=== PATIENT | female | born 1975 | race Asian ===

== ENCOUNTER 2018-05-27 19:54 | Emergency (ER) | payer OTHER, SELFPAY ==
[2018-05-27 20:06] VITALS: BP 136/90; PULSE 180; RESP 16; TEMP 37.2; O2SAT 100
--- NOTE | 2018-05-27 20:09 | DI.RAD.S_ITS ---
PROCEDURE: XR CHEST 1V INDICATIONS: chest pain TECHNIQUE: One view of the chest was acquired. COMPARISON: None. FINDINGS: Surgical changes and devices: None. Lungs and pleura: No pleural effusions or pneumothorax. Lungs are clear. Mediastinum: Mediastinal contours appear normal. Heart size is normal. Bones and chest wall: No suspicious bony lesions. Overlying soft tissues appear unremarkable. IMPRESSION: No acute cardiopulmonary disease. Dictated by: Benjamin Baez M.D. on 05/27/2018 at 22:05 Approved by: Benjamin Baez M.D. on 05/27/2018 at 22:06
[2018-05-27] MEDS: ADENOSINE 6 MG/2 ML VIAL IV (20:20)
--- NOTE | 2018-05-27 20:20 | ED_ITS ---
HPI - Arrhythmia/Palpitations General Chief Complaint: Arrhythmia/Palpitations Stated Complaint: HEAVINESS IN CHEST,SHAKING Time Seen by Provider: 05/27/18 20:04 Source: patient Mode of arrival: ambulatory Limitations: no limitations History of Present Illness HPI narrative: Patient is a 42-year-old female who presents with chest pain. She says she was riding her bike down [place] when she began feeling chest heaviness. She is noted to be in SVT with heart rate about 180. No prior history of cardiac arrhythmias. she denies any dizziness lightheadedness or shortness of breath MD complaint: rapid heart beat and heart racing Related Data Previous Rx's Medication Instructions Recorded typhoid polysacch vaccine 25 mcg IM QDAYP PRN #1 ea 09/22/17 [Typhim ] doxycycline monohydrate 100 mg PO QDAY #50 tab 09/26/17 Allergies Allergy/AdvReac Type Severity Reaction Status Date / Time No Known Drug Allergies Allergy Verified 05/27/18 20:08 Review of Systems Review of Systems All systems reviewed & are unremarkable except as noted in HPI and below Constitutional Denies chills, Denies fever(s), Denies lethargy and Denies weakness Eyes Denies change in vision, Denies eye discharge, Denies irritation and Denies loss of vision Cardiovascular Reports as per HPI, Denies dyspnea and Denies dyspnea on exertion Respiratory Denies cough, Denies dyspnea, Denies dyspnea on exertion and Denies wheezing Gastrointestinal Gastrointestinal: Denies abdominal pain, Denies change in bowel habits, Denies diarrhea, Denies nausea and Denies vomiting Musculoskeletal Denies back pain, Denies muscle weakness, Denies numbness and Denies tingling Integumentary/Breasts Denies pruritus, Denies erythema, Denies rash and Denies wounds Neurologic Denies loss of vision, Denies numbness, Denies tingling and Denies weakness Allergic/Immunologic Denies wheezing [facility] Medical History Healthy adult (Acute) Exam Initial Vital Signs Initial Vital Signs: Vital Signs Temperature 98.9 F 05/27/18 20:06 Pulse Rate 180 H 05/27/18 20:06 Respiratory Rate 16 05/27/18 20:06 Blood Pressure 136/90 H 05/27/18 20:06 Pulse Oximetry 100 05/27/18 20:06 Const General: cooperative and well developed Nutritional Appearance: well nourished Orientation: alert, awake, oriented x3 and not confused [facility] Head: normal to inspection and normocephalic Neck Neck: normal visual inspection, trachea midline, No lymphadenopathy and No midline deformity Chest Chest: normal inspection of the chest Resp Auscultation: clear to auscultation bilaterally, no rales, no rhonchi and no wheezes Cardio Rate: tachycardic Rhythm: regular rhythm Heart Sounds: no click, no gallops, no murmurs and no rubs Pulses: normal peripheral pulses Neuro General: alert, oriented x3, gait normal and no focal motor deficits Speech: speech normal Scores PERC Score Age greater than or equal to 50 years: No Heart rate greater than or equal to 100 bpm: No Room Air O2 Sat less than 95%: No Unilateral leg swelling: No Recent trauma or surgery: No Hemoptysis: No Prior PE or DVT: No Hormone Use: No Total PERC Score: 0 Wells' Criteria for PE Clinical signs and symptoms of PE: No PE is #1 Dx or equally likely: No Heart rate > 100: No Immobilization at least 3 days or surg in previous 4 weeks: No History of PE or DVT: No Hemoptysis: No Malignancy w/Treatment within 6 months or palliative: No Wells' PE Score total: 0 Course Orders Ordered: ED Orders 05/27/18 20:30 Complete Blood Count AUTO DIFF Stat Comprehensive Metabolic Panel Stat D Dimer Stat Magnesium Stat Troponin & CK Cardiac Panel Stat Discontinued Medications Adenosine (Adenocard) 6 mg IV NOW ONE Stop: 05/27/18 20:10 Last Admin: 05/27/18 20:20 Dose: 6 mg Sodium Chloride (Normal Saline 0.9%) 1,000 mls @ 1,000 mls/hr IV CONT JESUSITA Last Admin: 05/27/18 20:48 Dose: 1,000 mls/hr Vital Signs - 8 hr 05/27/18 21:43 05/27/18 22:19 Pulse Rate 78 109 H Respiratory Rate 23 21 Blood Pressure 140/83 H Blood Pressure [Left Arm] 123/86 H Pulse Oximetry 96 100 MDM - Arrhythmia/Palpitations Lab Data Attestation: I reviewed the patient's lab results. Result diagrams: 05/27/18 20:30 05/27/18 20:30 Lab Results 05/27/18 05/27/18 05/27/18 Range/Units 20:30 20:30 20:30 WBC 6.4 (4.5-11.0) X10^3/uL RBC 4.92 (4.0-5.2) X10^6/uL Hgb 14.2 (12.0-16.0) g/dL Hct 41.2 (36-46) % MCV 83.7 (80-100) fL MCH 28.9 (26-34) PG MCHC 34.6 (30-36) % RDW 13.9 (11.6-14.8) % Plt Count 176 (150-400) X10^3/uL Neut % (Auto) 65.4 (50-75) % Lymph % (Auto) 26.7 (25-40) % [place] % (Auto) 5.6 (3-14) % Eos % (Auto) 1.6 L (2-4) % Baso % (Auto) 0.7 (0-2) % Neut # (Auto) 4200 (3892-9399) /uL D-Dimer < 200 (<230) ng/mL Sodium 139 (137-145) mmol/L Potassium 3.7 (3.4-5.1) mmol/L Chloride 107 (98-107) mmol/L Carbon Dioxide 22 (22-32) mmol/L BUN 11 (7-17) mg/dL Creatinine 0.70 (0.52-1.04) mg/dL Estimated GFR > 60.0 (>60) mL/min BUN/Creatinine Ratio 15.7 (6-22) Glucose 117 H (70-100) mg/dL Calcium 9.0 (8.4-10.2) mg/dL Magnesium 2.1 (1.6-2.3) mg/dL Total Bilirubin 0.4 (0.2-1.3) mg/dL AST 58 H (14-36) IU/L ALT 57 H (9-52) IU/L Alkaline Phosphatase 67 (38-126) U/L Total Creatine Kinase 74 (30-135) U/L Troponin I < 0.012 (0.01-0.034) ng/mL Total Protein 7.5 (6.3-8.2) g/dL Albumin 4.3 (3.5-5.0) g/dL Globulin 3.2 (1.7-4.1) g/dL Albumin/Globulin Ratio 1.3 (1.0-2.8) ECG Data Attestation: I personally reviewed and interpreted this ECG as follows: Prior ECG tracings: not available for review Interpretation: SVT rate [address] changes no priors MDM Narrative Medical decision making narrative: Patient converted to normal sinus rhythm but remains sinus tachycardic. D-dimer and perk score are negative. He admits to being anxious and cold from the IV fluids. She feels ready and able to go home. Her also does as well. Discharge Plan Departure Patient Disposition: Home, Self-Care Clinical Impression: SVT (supraventricular tachycardia) Discharge Date/Time: 05/27/18 22:19 Interventions: ED Discharge Assessment Last Done: 05/27/18 22:19 Instructions: Paroxysmal Supraventricular Tachycardia Activity Restrictions/Additional Instructions: *You have been diagnosed with SVT *What to do: Speak with her primary care physician about referral to cardiology *Continue to take medications as directed *Follow up with your primary care provider in 2-3 days *Return to ER if you should have increasing chest pain, dizziness, lightheadedness or any new, worsening or concerning symptoms Prescriptions: No Action typhoid polysacch vaccine [Typhim ] 25 MCG/0.5 ML solution 25 mcg IM QDAYP PRNQty: 1 RF: 0 doxycycline monohydrate 100 MG tablet 100 mg PO QDAY Qty: 50 RF: 0 Referrals: Fiorella Morgan MD [Primary Care Provider] -
[2018-05-27 20:35] VITALS: BP 142/90; PULSE 103; RESP 18; O2SAT 100
--- NOTE | 2018-05-27 20:41 | PC.NURSE ---
acute onset chest feels heavy onset while at rest denies pain/soa/numbness/tingling/nausea/dizziness or other sx, SVT rate 180-200 on monitor at time of triage, MD at bedside
--- NOTE | 2018-05-27 20:45 | PC.NURSE ---
6mg Adenosine given 2020 rapid IVP MD Titus at bedside, HR decreased from 188 to 104 pt tolerated well
[2018-05-27] MEDS: SODIUM CHLORIDE 0.9% 1,000 ML 1000 ML IV (20:48)
[2018-05-27 21:05] VITALS: BP 152/115; PULSE 115; O2SAT 100
[2018-05-27 21:07] LABS: Add Manual Diff / Slide Review NO; Basophils Percent Auto 0.7 % (0-2); Eosinophils Percent Auto 1.6 % (2-4); Hematocrit 41.2 % (36-46); Hemoglobin 14.2 g/dL (12.0-16.0); Lymphocytes Percent Auto 26.7 % (25-40); Mean Corpuscular HGB Conc 34.6 % (30-36); Mean Corpuscular Hemoglobin 28.9 PG (26-34); Mean Corpuscular Volume 83.7 fL (80-100); Monocytes Percent Auto 5.6 % (3-14); Neutrophils Absolute Auto 4200 /uL (3000-5900); Neutrophils Percent Auto 65.4 % (50-75); Platelet Count 176 X10^3/uL (150-400); Red Blood Cell Count 4.92 X10^6/uL (4.0-5.2); Red Cell Distribution Width 13.9 % (11.6-14.8); White Blood Cell Count 6.4 X10^3/uL (4.5-11.0)
[2018-05-27 21:11] LABS: Alanine Aminotransferase 57 IU/L (9-52); Albumin 4.3 g/dL (3.5-5.0); Albumin Globulin Ratio 1.3 (1.0-2.8); Alkaline Phosphatase 67 U/L (38-126); Aspartate Aminotransferase 58 IU/L (14-36); BUN Creatinine Ratio 15.7 (6-22); Bilirubin Total 0.4 mg/dL (0.2-1.3); Blood Urea Nitrogen 11 mg/dL (7-17); Carbon Dioxide 22 mmol/L (22-32); Chloride 107 mmol/L (98-107); Creatine Kinase 74 U/L (30-135); Estimated Glomerular Filt Rate > 60.0 mL/min (>60); Globulin 3.2 g/dL (1.7-4.1); Glucose 117 mg/dL (70-100); HEMOLYSIS 23 (0-50); Magnesium 2.1 mg/dL (1.6-2.3); Potassium 3.7 mmol/L (3.4-5.1); Sodium 139 mmol/L (137-145); Total Protein 7.5 g/dL (6.3-8.2)
[2018-05-27 21:23] LABS: D Dimer < 200 ng/mL (<230); Troponin I < 0.012 ng/mL (0.01-0.034)
[2018-05-27 21:43] VITALS: BP 123/86; PULSE 78; RESP 23; O2SAT 96
[2018-05-27 22:19] VITALS: BP 140/83; PULSE 109; RESP 21; O2SAT 100
--- NOTE | 2018-06-24 13:12 | PC.NURSE ---
05/27/18 0265 NS iv bolus stopped total infused 1000ml
== END 2018-05-27 22:19 | disposition home or self-care (01) ==
PROVIDERS: Emergency Provider Emergency Medicine; Family Provider Family Medicine; PCP Family Medicine
DX: I47.1 Supraventricular tachycardia (principal)
CPT/HCPCS: 36591; 71045; 80053; 82550; 82553; 83735; 84484; 85025; 85379; 93005; 93010; 96361; 96374; 99283; 99285; J0153

== ENCOUNTER 2018-05-28 23:54 | Emergency (ER) | payer OTHER, SELFPAY ==
[2018-05-29 00:05] VITALS: BP 155/87; PULSE 100; RESP 19; TEMP 37; O2SAT 100
[2018-05-29 00:42] VITALS: BP 138/93; PULSE 82; RESP 17; O2SAT 99
--- NOTE | 2018-05-29 01:14 | PC.NURSE ---
pt ambulation trial on monitor per order, highest HR during trial 107, pt denies cp or discomfort
--- NOTE | 2018-05-29 01:15 | ED_ITS ---
HPI - Arrhythmia/Palpitations General Chief Complaint: Arrhythmia/Palpitations Stated Complaint: feels weird in chest, some sharp pain Time Seen by Provider: 05/29/18 00:09 Source: patient History of Present Illness HPI narrative: Patient is a 42-year-old female who presents with heart palpitations. She has seen evaluated yesterday with new onset SVT at a heart rate of 180. Today she has been wearing her fit bit and noticed that her heart rate was 130 while walking but at rest it was high at 50. She had some left arm discomfort today as well and some sharp stabbing chest pain. She also feels like she is very anxious about this new diagnosis. 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 She denies any shortness of breath syncope or presyncopal symptoms Related Data Previous Rx's Medication Instructions Recorded typhoid polysacch vaccine 25 mcg IM QDAYP PRN #1 ea 09/22/17 [Typhim ] doxycycline monohydrate 100 mg PO QDAY #50 tab 09/26/17 Allergies Allergy/AdvReac Type Severity Reaction Status Date / Time No Known Drug Allergies Allergy Verified 05/27/18 20:08 Review of Systems Review of Systems GENERAL: Denies chills, fatigue, malaise, fever, sweats, travel HEENT: Denies sinus pain, ear pain, sore throat, difficulty swallowing, neck pain RESPIRATORY: Denies dyspnea, cough, wheezing, hemoptysis, sputum. CARDIOVASCULAR: See HPI GASTROINTESTINAL: Denies nausea, vomiting, abdominal pain, diarrhea, constipation, melena. : Denies dysuria, frequency, incontinence, hematuria, urinary retention, flank pain. MUSCULOSKELETAL: Denies weakness, joint pain, or bony pain SKIN: No rash, no erythema, no pruritus NEUROLOGIC: Denies weakness, dizziness, headache, numbness, change in speech, confusion PSYCHIATRIC: No concerning psychosocial issues. 12 point review of systems is negative except for those stated above and HPI PFSH Medical History Healthy adult (Acute) SVT (supraventricular tachycardia) (Acute) Social History Smoking Status: Never smoker alcohol intake: never substance use type: does not use Exam Initial Vital Signs Initial Vital Signs: Vital Signs Temperature 98.6 F 05/29/18 00:05 Pulse Rate 100 H 05/29/18 00:05 Respiratory Rate 19 05/29/18 00:05 Blood Pressure 155/87 H 05/29/18 00:05 Pulse Oximetry 100 05/29/18 00:05 GENERAL: Well-appearing, well-nourished and in no acute distress. HEENT: Head atraumatic,EOMI, pupils reactive, CARDIOVASCULAR: Regular rate and rhythm without murmurs, rubs or gallops. RESPIRATORY: Breath sounds equal bilaterally, no wheezes rales or rhonchi. ABDOMEN: Soft, nontender. Normoactive bowel sounds all 4 quadrants. No guarding or rebound. EXTREMITIES: Normal range of motion, no clubbing or edema. Neurovascularly intact NEUROLOGICAL: Alert and oriented x4.Normal gait and speech. Cranial nerves II through XII grossly intact. SKIN: Warm, dry, no laceration, no petechiae, no rashes or lesions. Course Orders Ordered: ED Orders 05/29/18 EKG-12 Lead Stat 05/29/18 01:41 Troponin & CK Cardiac Panel Stat Vital Signs - 8 hr 05/29/18 00:05 05/29/18 00:42 05/29/18 02:49 Temperature 98.6 F 99.2 F Pulse Rate 100 H 82 75 Respiratory Rate 19 17 16 Blood Pressure 155/87 H 127/90 H Blood Pressure [Right Arm] 138/93 H Pulse Oximetry 100 99 100 MDM - Arrhythmia/Palpitations Lab Data Attestation: I reviewed the patient's lab results. Lab Results 05/29/18 Range/Units 01:41 Total Creatine Kinase 67 (30-135) U/L Troponin I < 0.012 (0.01-0.034) ng/mL ECG Data Attestation: I personally reviewed and interpreted this ECG as follows: Prior ECG tracings: available for review Interpretation: Normal sinus rhythm rate [address] changes MDM Narrative Medical decision making narrative: Patient is in normal sinus rhythm. She had an ambulation trial heart rate did increase to 107. His but returned back to under 100 at rest. She is very anxious about this SVT and returning. It sounds as though her primary is trying to get her to cardiology. She had full all electrolytes and WBC yesterday. Repeat troponin today is negative. Discharge Plan Departure Patient Disposition: Home, Self-Care Clinical Impression: Palpitations, Anxiety Discharge Date/Time: 08/14/18 02:30 Interventions: ED Discharge Assessment Last Done: 05/29/18 02:49 Instructions: DI for Palpitations Activity Restrictions/Additional Instructions: *You have been diagnosed with heart palpitations *What to do: If her heart rate is consistently above 100 in 50 at rest and with mild exertion return to the ER for evaluation *Continue to take medications as directed *Follow up with your primary care provider in 2-3 days-call Dr. Morgan tomorrow 1st thing in the morning for appointment if you have not made 1 already *Return to ER if you should have any new, worsening or concerning symptoms Prescriptions: No Action typhoid polysacch vaccine [Typhim ] 25 MCG/0.5 ML solution 25 mcg IM QDAYP PRNQty: 1 RF: 0 doxycycline monohydrate 100 MG tablet 100 mg PO QDAY Qty: 50 RF: 0 Referrals: Fiorella Morgan MD [Primary Care Provider] -
[2018-05-29 02:02] LABS: Creatine Kinase 67 U/L (30-135)
[2018-05-29 02:15] LABS: Troponin I < 0.012 ng/mL (0.01-0.034)
[2018-05-29 02:49] VITALS: BP 127/90; PULSE 75; RESP 16; TEMP 37.3; O2SAT 100
== END 2018-05-29 02:30 | disposition home or self-care (01) ==
PROVIDERS: Emergency Provider Emergency Medicine; Family Provider Family Medicine; PCP Family Medicine
DX: F41.9 Anxiety disorder, unspecified (principal); R00.2 Palpitations
CPT/HCPCS: 36415; 82550; 82553; 84484; 93005; 93010; 99282; 99284; 99291

== ENCOUNTER → 2018-06-01 10:13 | Outpatient (CLI) | payer OTHER, SELFPAY ==
[2018-06-06 11:10] LABS: Metanephrine, Free 66 pg/mL (< OR = 57); Normetanephrine, Free 140 pg/mL (< OR = 148)
[2018-06-06 14:51] LABS: Total Volume: 2800 mL; Vanillymandelic Acid 24 Hr Ur 7.2 mg/24 h (< OR = 6.0)
== END ==
PROVIDERS: PCP Family Medicine; Visit Provider Internal Medicine Cardiovascular Disease
DX: R03.0 Elevated blood-pressure reading, without diagnosis of hypertension (principal)
CPT/HCPCS: 36415; 82088; 82384; 83835; 84585

== ENCOUNTER → 2018-06-04 08:22 | Outpatient (CLI) | payer OTHER, SELFPAY ==
--- NOTE | 2018-06-04 | DI.ECHO.S_ITS ---
[facility] +---------+ [facility] +---------+ : : [address] : : : : [id number] : : : : Phone: [phone] Echocardiogram Report + + :Name: SNOW RICE Study Date: 06/04/2018 Height: 64 in : :[facility] Weight: 171 lb : : Gender: Female BSA: 1.8 m2 : :: 1975 Age: 42 yrs BP: 124/78 mmHg: :Reason For Study: Arrhythmia, SVT : : Performed By: Chela Alvarado : :Referring: DOC BLANC : + + Interpretation Summary The left ventricle is normal in size. The ejection fraction is estimated to be 55-60%. The right ventricle is normal in size and function. No significant valvular pathology seen. Procedure: A two-dimensional transthoracic echocardiogram with color flow and Doppler was performed. The study quality was technically adequate. There is no prior echocardiogram noted for this patient. The patient was in normal sinus rhythm during the exam. Left Ventricle: The left ventricle is normal in size. There is normal left ventricular wall thickness. There is no ventricular septal defect visualized. The ejection fraction is estimated to be 55-60%. Left ventricular systolic function is normal. There are no focal wall motion abnormalities. Assessment of diastolic parameters indicates normal left ventricular diastolic function and normal filling pressures. Right Ventricle: The right ventricle is normal in size and function. Atria: Both atria are normal in size. There is no Doppler evidence for an interatrial shunt. Mitral Valve: There is mild mitral annular calcification. There is trace mitral regurgitation. Aortic Valve: The aortic valve is normal in structure and function. There is no aortic valve stenosis. No aortic regurgitation is present. Tricuspid Valve: The tricuspid valve is normal. Pulmonary artery pressures cannot be estimated because of the lack of a measurable TR jet velocity. There is trace tricuspid regurgitation. Pulmonic Valve: The pulmonic valve is not well seen, but is grossly normal. There is no pulmonic valvular regurgitation. Great Vessels: The aortic root is normal size. The ascending aorta is normal in size. The aortic arch is normal in size. The pulmonary artery is not well visualized, but is probably normal size. The IVC is of normal diameter and collapses greater than 50% with a sniff. This suggests a low right atrial pressure of 3 mm Hg. Pericardium/ Pleura There is no pericardial effusion. There is no pleural effusion. MMode/2D Measurements & Calculations LVIDd: 5.1 cm LVOT diam: 2.0 cm LVIDs: 3.1 cm Ao root diam: 3.1 cm FS: 37.9 % Aortic Jxn: 2.9 cm EPSS: 0.60 cm asc Aorta Diam: 2.7 cm IVSd: 0.67 cm Ao Arch Diam (Prox Trans): 2.0 cm LVPWd: 0.90 cm LV reaves. diameter/BSA (cm/m^2): 2.8 LV sys. diameter/BSA (cm/m^2): 1.7 LA A2 area: 13.2 cm2 RA long axis: 3.7 cm LA A4 area: 13.4 cm2 RA area: 8.7 cm2 LA length (vol): 4.5 cm RA vol: 17.7 ml LA vol: 33.2 ml RA : 9.7 ml/m2 LA vol index: 18.1 ml/m2 IVC diam: 0.83 cm RVD1 (basal): 3.2 cm TAPSE: 2.2 cm Doppler Measurements & Calculations Ao V2 max: 123.0 cm/sec LVOT Max Vasile: 119.7 cm/sec Ao V2 mean: 88.6 cm/sec LV V1 max P.7 mmHg Ao max P.0 mmHg LV V1 VTI: 21.3 cm Ao mean P.5 mmHg NICHO(I,D): 2.7 cm2 Ao V2 VTI: 24.1 cm NICHO(V,D): 3.0 cm2 sev ratio: 0.88 NICHO indexed to BSA (cm^2/m^2): 1.5 MV E max vasile: 75.4 cm/sec PA V2 max: 104.4 cm/sec MV A max vasile: 56.3 cm/sec PA V2 mean: 65.1 cm/sec MV E/A: 1.3 PA mean P.0 mmHg Med Peak E' Vasile: 8.7 cm/sec PA Accel Time: 0.09 sec E/E' med: 8.6 Lat Peak E' Vasile: 14.9 cm/sec E/E' lat: 5.0 E/e' average: 6.8 MV dec time: 0.17 sec MV P1/2t: 50.9 msec MV P1/2t max vasile: 76.1 cm/sec MVA(P1/2t): 4.3 cm2 Reading Physician:RUPERT
== END ==
PROVIDERS: PCP Family Medicine; Visit Provider Nurse Practitioner Family
DX: I47.1 Supraventricular tachycardia (principal)
CPT/HCPCS: 93306

== ENCOUNTER → 2018-06-14 10:27 | Outpatient (CLI) | payer OTHER, SELFPAY ==
--- NOTE | 2018-06-14 12:04 | DIET.PN ---
Met for an intitial nutrition consultation. This is a very nice woman of [place]. [place] decent, states she doesn't know what to eat. Doesn't eat a lot of [place]ian or spicy food as children do not like it. Has many questions and appears quite anxious to do the right thing. DX: hypertriglyceridemia, pure hyperglycemia HT: 65 WT: 158# HIGHEST WT: 174# IBW: 124-138# BMI: 27 overweight MEDS/SUPPLEMENTS: Metoprolol, a couple gummy vits - one for bone health; another for hair and skin USUAL DIET: Up until recently was eating a lot of fast food, restaurant foods and sweets. Loves ice cream. Last spring pt and her sister decided they needed to lose wt; started walking 6-8mi/day and eating better. But the summer got busy and she quit everything. With recent dx of hypertriglyceridemia has started eating better again, cutting out sugar and substituting with fruit/dried fruit to satisfy her sweet tooth. Dislikes all seafood. ASSESSMENT: Usual diet appears poor; very high in salt, sugar, processed food. More recent diet is much improved and low in added sugar, though still getting more than recommended natural sugar in form of fruit. Eating more vegetables. Very little dairy. Has cut down on bread, grains and salt. Needs to up exercise level again and perhaps aim for more sustainable amount of exercise. INTERVENTION: Spent a lot of time answering questions - re; specific food choices, her vit supplements, the meaning of lab values, etc. Instructed on low TG diet, specifically limiting sugar and concentrated CHOS including fruit and refined starchy foods. Provided ed on label reading GOAL/PLAN: Continue to keep sugar out of diet; decrease fruit to 2 servings daily. Increase walking again with goal of 10,000 steps daily and >15,000 steps 2-3 times /week. (Pt has tracker) Suggest Fish oil supplement Bring vit labels to next visit for me to review F/U in 1 mo
== END ==
PROVIDERS: PCP Family Medicine; Visit Provider Family Medicine
DX: R73.9 Hyperglycemia, unspecified (principal); E78.1 Pure hyperglyceridemia
CPT/HCPCS: 97802

== ENCOUNTER → 2018-09-21 10:31 | Outpatient (CLI) | payer OTHER, SELFPAY ==
[2018-09-21 12:47] LABS: Alanine Aminotransferase 26 IU/L (9-52); Albumin 4.6 g/dL (3.5-5.0); Albumin Globulin Ratio 1.6 (1.0-2.8); Alkaline Phosphatase 60 U/L (38-126); Aspartate Aminotransferase 24 IU/L (14-36); BUN Creatinine Ratio 15.7 (6-22); Bilirubin Total 0.9 mg/dL (0.2-1.3); Blood Urea Nitrogen 11 mg/dL (7-17); Calcium 9.3 mg/dL (8.4-10.2); Carbon Dioxide 24 mmol/L (22-32); Chloride 102 mmol/L (98-107); Cholesterol 184 mg/dL (140-199); Estimated Glomerular Filt Rate > 60.0 mL/min (>60); Globulin 2.9 g/dL (1.7-4.1); Glucose 84 mg/dL (70-100); HDL Cholesterol 47 mg/dL (40-60); HEMOLYSIS < 15 (0-50); LDL Cholesterol Calculated 116 mg/dL (<100); Potassium 4.2 mmol/L (3.4-5.1); Sodium 141 mmol/L (137-145); Total Protein 7.5 g/dL (6.3-8.2); Triglycerides 103 mg/dL (35-150)
== END ==
PROVIDERS: PCP Family Medicine; Visit Provider Family Medicine
DX: Z13.220 Encounter for screening for lipoid disorders (principal)
CPT/HCPCS: 36415; 80053; 80061

== ENCOUNTER 2019-03-12 07:51 | Outpatient (RCR) | payer OTHER, SELFPAY | END 2019-03-13 12:26 | LOC: PHYS 07:51 | PROVIDERS: PCP Family Medicine; Visit Provider Family Medicine | DX: M54.32 Sciatica, left side (principal) ==

== ENCOUNTER 2019-05-17 01:58 | Emergency (ER) | payer OTHER, SELFPAY ==
[2019-05-17 02:06] VITALS: BP 152/80; PULSE 108; RESP 18; TEMP 36.6; O2SAT 100
--- NOTE | 2019-05-17 02:26 | ED.ARRPALP ---
HPI - Arrhythmia/Palpitations General Chief Complaint: Arrhythmia/Palpitations Stated Complaint: palpitations Time Seen by Provider: 05/17/19 02:18 Source: patient Mode of arrival: ambulatory Limitations: no limitations History of Present Illness HPI narrative: The patient was seen here last year diagnosed with SVT. She had no prior history of tachyarrhythmia. She now takes metoprolol daily. After going to bed tonight, she had palpitations that awoke her from sleep. There is no associated headache, chest pain, or difficulty breathing. She was not feeling weak or dizzy. She was recently on vacation, but is eating a normal diet. She is on no supplements. She does not use tobacco or alcohol. She describes drinking 1 single cup of tea daily, no additional caffeine intake. She had palpitations awaken her from sleep, but her after arrival her symptoms have decreased during triage, resolved when I see her. She has not recently been ill. She has no other significant medical problems. Related Data Home Medications Medication Instructions Recorded Confirmed metoprolol succinate ER 25 mg 25 mg PO DAILY 07/09/18 02/13/19 tablet,extended release 24 hr Allergies Allergy/AdvReac Type Severity Reaction Status Date / Time No Known Drug Allergies Allergy Verified 02/13/19 15:30 Review of Systems Review of Systems ROS Unobtainable: All systems reviewed & are unremarkable except as noted in HPI and below Constitutional Denies chills, Denies fever(s), Denies lethargy and Denies weakness Cardiovascular Reports chest pain, Denies diaphoresis, Denies syncope, Reports rapid heart rate, Reports palpitations and Denies dyspnea Respiratory Denies cough and Denies dyspnea Gastrointestinal Gastrointestinal: Denies abdominal pain, Denies diarrhea and Denies nausea Musculoskeletal Denies back pain Integumentary/Breasts Denies erythema and Denies rash Neurologic Denies syncope and Denies weakness Endocrine Reports palpitations [facility] Medical History (Updated 05/17/19 @ 03:41 by Oscar Reyes MD) Healthy adult (Acute) SVT (supraventricular tachycardia) (Acute) Surgical History (Updated 05/17/19 @ 02:32 by Oscar Reyes MD) No pertinent past surgical history (Acute) Social History Smoking Status: Never smoker alcohol intake: never substance use type: does not use Social History Smoking Status: Never smoker alcohol intake: never substance use type: does not use Exam Initial Vital Signs Initial Vital Signs: Vital Signs Temperature 98 F 05/17/19 02:06 Pulse Rate 108 H 05/17/19 02:06 Respiratory Rate 18 05/17/19 02:06 Blood Pressure 152/80 H 05/17/19 02:06 Pulse Oximetry 100 05/17/19 02:06 Const General: cooperative and well developed Nutritional Appearance: well nourished Orientation: alert, awake, oriented x3 and not confused HENMT Head: normal to inspection and normocephalic Mouth: oral mucosae normal Throat: posterior oropharynx normal Eyes Pupils: PERRL EOM: EOM intact bilaterally Neck Thyroid: thyroid normal Chest Chest: normal inspection of the chest Resp Effort & Inspection: normal respiratory effort Auscultation: clear to auscultation bilaterally Cardio Rate: regular rate Rhythm: regular rhythm Heart Sounds: no click, no gallops, no murmurs and no rubs Pulses: normal peripheral pulses Back/Spine/Pelvis Back: No CVA tenderness Skin General: no rashes or lesions noted Neuro General: alert, oriented x3, gait normal and no focal motor deficits Speech: speech normal Extrem General: full ROM, No no clubbing, cyanosis or edema, no pedal edema and no calf tenderness Course Course Narrative: The patient has been in normal sinus rhythm/sinus tachycardia since arrival. She is otherwise asymptomatic. Cardiac studies are normal. Her TSH is elevated. She will be referred to her PCM for additional evaluation. Orders Ordered: ED Orders 05/17/19 02:40 Basic Metabolic Panel Stat Complete Blood Count AUTO DIFF Stat Magnesium Stat Thyroid Stimulating Hormone Stat Troponin & CK Cardiac Panel Stat Vital Signs - 8 hr 05/17/19 02:06 05/17/19 03:04 Temperature 98 F Pulse Rate 108 H 96 H Respiratory Rate 18 18 Blood Pressure 152/80 H Blood Pressure [Right Arm] 124/86 Pulse Oximetry 100 99 MDM - Arrhythmia/Palpitations Lab Data Result diagrams: 05/17/19 02:40 05/17/19 02:40 Lab Results 05/17/19 05/17/19 05/17/19 Range/Units 02:40 02:40 02:40 WBC 7.2 (4.5-11.0) X10^3/uL RBC 4.56 (4.0-5.2) X10^6/uL Hgb 13.1 (12.0-16.0) g/dL Hct 38.8 (36-46) % MCV 85.2 (80-100) fL MCH 28.8 (26-34) PG MCHC 33.9 (30-36) % RDW 13.7 (11.6-14.8) % Plt Count 176 (150-400) X10^3/uL Neut % (Auto) 69.1 (50-75) % Lymph % (Auto) 23.2 L (25-40) % [place] % (Auto) 6.0 (3-14) % Eos % (Auto) 1.4 L (2-4) % Baso % (Auto) 0.3 (0-2) % Neut # (Auto) 5000 (5910-1718) /uL Lymph # (Auto) 1700 (5543-4962) /uL [place] # (Auto) 400 (0-900) /uL Eos # (Auto) 100 (0-450) /uL Baso # (Auto) 0 (0-100) /uL Sodium 137 (137-145) mmol/L Potassium 3.3 L (3.4-5.1) mmol/L Chloride 103 (98-107) mmol/L Carbon Dioxide 25 (22-32) mmol/L BUN 11 (7-17) mg/dL Creatinine 0.70 (0.52-1.04) mg/dL Estimated GFR > 60.0 (>60) mL/min BUN/Creatinine Ratio 15.7 (6-22) Glucose 113 H (70-100) mg/dL Calcium 8.9 (8.4-10.2) mg/dL Magnesium 1.9 (1.6-2.3) mg/dL Total Creatine Kinase 70 (30-135) U/L CK-MB (CK-2) TNP CK-MB (CK-2) Rel Index TNP Troponin I < 0.012 (0.01-0.034) ng/mL TSH 9.54 H (0.47-4.68) uIU/mL ECG Data Attestation: I personally reviewed and interpreted this ECG as follows: Discharge Plan Departure Patient Disposition: Home Clinical Impression: Heart palpitations Hypothyroidism Qualifiers: Hypothyroidism type: unspecified Qualified Code(s): E03.9 - Hypothyroidism, unspecified Instructions: Arrhythmias, DI for Hypothyroidism Activity Restrictions/Additional Instructions: Continue her current medications. Contact your doctor tomorrow to arrange a follow-up appointment. You need additional studies on your thyroid. FU have ongoing sensation of irregular heartbeats, take the metoprolol twice a day. Return to the ER for increasing chest pain, weakness, or difficulty breathing. Prescriptions: No Action metoprolol succinate 25 mg tablet extended release 24 hr 25 mg PO DAILY RF: 0 Referrals: Fiorella Morgan MD [Primary Care Provider] -
[2019-05-17 02:50] LABS: Add Manual Diff / Slide Review NO; Basophils Absolute Auto 0 /uL (0-100); Basophils Percent Auto 0.3 % (0-2); Eosinophils Absolute Auto 100 /uL (0-450); Eosinophils Percent Auto 1.4 % (2-4); Hematocrit 38.8 % (36-46); Hemoglobin 13.1 g/dL (12.0-16.0); Lymphocytes Absolute Auto 1700 /uL (1100-4500); Lymphocytes Percent Auto 23.2 % (25-40); Mean Corpuscular HGB Conc 33.9 % (30-36); Mean Corpuscular Hemoglobin 28.8 PG (26-34); Mean Corpuscular Volume 85.2 fL (80-100); Monocytes Absolute Auto 400 /uL (0-900); Neutrophils Absolute Auto 5000 /uL (1500-7000); Neutrophils Percent Auto 69.1 % (50-75); Platelet Count 176 X10^3/uL (150-400); Red Blood Cell Count 4.56 X10^6/uL (4.0-5.2); Red Cell Distribution Width 13.7 % (11.6-14.8); White Blood Cell Count 7.2 X10^3/uL (4.5-11.0)
[2019-05-17 03:01] LABS: BUN Creatinine Ratio 15.7 (6-22); Blood Urea Nitrogen 11 mg/dL (7-17); Calcium 8.9 mg/dL (8.4-10.2); Carbon Dioxide 25 mmol/L (22-32); Chloride 103 mmol/L (98-107); Creatine Kinase 70 U/L (30-135); Estimated Glomerular Filt Rate > 60.0 mL/min (>60); Glucose 113 mg/dL (70-100); HEMOLYSIS 15 (0-50); Magnesium 1.9 mg/dL (1.6-2.3); Potassium 3.3 mmol/L (3.4-5.1); Sodium 137 mmol/L (137-145)
[2019-05-17 03:04] VITALS: BP 124/86; PULSE 96; RESP 18; O2SAT 99
[2019-05-17 03:13] LABS: Troponin I < 0.012 ng/mL (0.01-0.034)
[2019-05-17 03:30] VITALS: BP 140/85; PULSE 94; RESP 14; O2SAT 100
[2019-05-17 03:32] LABS: Thyroid Stimulating Hormone 9.54 uIU/mL (0.47-4.68)
[2019-05-17 04:01] VITALS: BP 128/78; PULSE 80; RESP 18; O2SAT 100
== END 2019-05-17 04:02 | disposition home or self-care (01) ==
PROVIDERS: Emergency Provider Emergency Medicine; PCP Family Medicine
DX: R00.2 Palpitations (principal); E03.9 Hypothyroidism, unspecified
CPT/HCPCS: 36415; 80048; 82550; 83735; 84443; 84484; 85025; 93005; 93041; 99283; 99284

== ENCOUNTER → 2019-08-22 07:58 | Outpatient (CLI) | payer OTHER, SELFPAY ==
[2019-08-22 09:12] LABS: Hemoglobin A1C% w Est Avg Glu 5.4 % (4.0-6.0)
[2019-08-22 09:12] LABS: BUN Creatinine Ratio 15.7 (6-22); Blood Urea Nitrogen 11 mg/dL (7-17); Calcium 9.3 mg/dL (8.4-10.2); Carbon Dioxide 25 mmol/L (22-32); Chloride 105 mmol/L (98-107); Estimated Glomerular Filt Rate > 60.0 mL/min (>60); Glucose 89 mg/dL (70-100); HEMOLYSIS < 15 (0-50); Potassium 4.5 mmol/L (3.4-5.1); Sodium 139 mmol/L (137-145)
[2019-08-22 09:47] LABS: TSH w/ Reflex to FT4 1.78 uIU/mL (0.47-4.68)
[2019-08-22 10:57] LABS: Creatinine Urine Random 112.4 mg/dL
[2019-08-22 11:08] LABS: Microalbumi Creatinin Ratio Ur 5.3 ug/mg CR (<30); Microalbumin Urine Random < 0.6 mg/dL (0-1.6)
== END ==
PROVIDERS: Nurse Practitioner Family; PCP Family Medicine; Visit Provider Family Medicine
DX: E03.9 Hypothyroidism, unspecified (principal); E87.6 Hypokalemia; R73.09 Other abnormal glucose; I10 Essential (primary) hypertension
CPT/HCPCS: 36415; 80048; 82043; 82570; 83036; 84443

== ENCOUNTER → 2019-08-23 09:38 | Outpatient (CLI) | payer OTHER, SELFPAY ==
[2019-08-23 11:20] LABS: Erythrocyte Sedimentation Rate 10 MM/HR (0-20)
[2019-08-23 11:36] LABS: Ferritin 9.1 ng/mL (6.27-137)
== END ==
PROVIDERS: PCP Family Medicine; Visit Provider Physician Assistant Medical
DX: L65.9 Nonscarring hair loss, unspecified (principal)
CPT/HCPCS: 36415; 82728; 85651

== ENCOUNTER → 2019-10-24 08:44 | Outpatient (CLI) | payer OTHER, SELFPAY ==
--- NOTE | 2019-10-24 | DI.MG.S_ITS ---
BILATERAL DIGITAL SCREENING MAMMOGRAM 3D/2D WITH CAD: 10/24/2019 CLINICAL: Routine screening. Comparison is made to exam dated: 09/21/2017 [facility]. There are scattered fibroglandular elements in both breasts. Current study was also evaluated with a Computer Aided Detection (CAD) system. No significant masses, calcifications, or other findings are seen in either breast. There has been no significant interval change. IMPRESSION: NEGATIVE There is no mammographic evidence of malignancy. A 1 year screening mammogram is recommended. This exam was interpreted at Station ID: [id number]. NOTE: For mammograms, a report in lay terms will be sent to the patient. Approximately 15% of breast malignancies will not be visualized mammographically. In the management of a palpable breast mass, a negative mammogram must not discourage biopsy of a clinically suspicious lesion. Electronically Signed By: Papo pablo/krystyna:10/24/2019 10:24:59 letter sent: Normal Exam ACR BI-RADS Category 1: Negative 3341F
== END ==
PROVIDERS: PCP Family Medicine; Visit Provider Internal Medicine
DX: Z12.31 Encounter for screening mammogram for malignant neoplasm of breast (principal)
CPT/HCPCS: 77063; 77067

== ENCOUNTER → 2019-11-08 08:35 | Outpatient (CLI) | payer OTHER, SELFPAY ==
[2019-11-08 10:06] LABS: HEMOLYSIS < 15 (0-50); Iron 54 ug/dL (37-170)
[2019-11-08 10:10] LABS: Add Manual Diff / Slide Review NO; Alanine Aminotransferase 15 IU/L (<35); Albumin 4.2 g/dL (3.5-5.0); Albumin Globulin Ratio 1.3 (1.0-2.8); Alkaline Phosphatase 53 U/L (38-126); Aspartate Aminotransferase 21 IU/L (14-36); Basophils Absolute Auto 0 /uL (0-100); Basophils Percent Auto 0.4 % (0-2); Bilirubin Total 0.5 mg/dL (0.2-1.3); Blood Urea Nitrogen 12 mg/dL (7-17); Calcium 9.5 mg/dL (8.4-10.2); Carbon Dioxide 27 mmol/L (22-32); Chloride 102 mmol/L (98-107); Cholesterol 193 mg/dL (140-199); Eosinophils Absolute Auto 100 /uL (0-450); Eosinophils Percent Auto 2.5 % (2-4); Estimated Glomerular Filt Rate > 60.0 mL/min (>60); Globulin 3.3 g/dL (1.7-4.1); Glucose 78 mg/dL (70-100); HDL Cholesterol 45 mg/dL (40-60); HEMOLYSIS < 15 (0-50); Hematocrit 39.9 % (36-46); Hemoglobin 13.7 g/dL (12.0-16.0); LDL Cholesterol Calculated 120 mg/dL (<100); Lymphocytes Absolute Auto 1000 /uL (1100-4500); Lymphocytes Percent Auto 22.1 % (25-40); Mean Corpuscular HGB Conc 34.4 % (30-36); Mean Corpuscular Hemoglobin 29.6 PG (26-34); Mean Corpuscular Volume 86.1 fL (80-100); Monocytes Absolute Auto 300 /uL (0-900); Monocytes Percent Auto 5.6 % (3-14); Neutrophils Absolute Auto 3300 /uL (1500-7000); Neutrophils Percent Auto 69.4 % (50-75); Platelet Count 168 X10^3/uL (150-400); Potassium 4.4 mmol/L (3.4-5.1); Red Blood Cell Count 4.64 X10^6/uL (4.0-5.2); Red Cell Distribution Width 13.7 % (11.6-14.8); Sodium 139 mmol/L (137-145); Total Protein 7.5 g/dL (6.3-8.2); Triglycerides 141 mg/dL (35-150); White Blood Cell Count 4.7 X10^3/uL (4.5-11.0)
[2019-11-08 10:17] LABS: Percent Iron Saturation 15 % (15-50); Total Iron Binding Capacity 353 ug/dL (265-497); Transferrin 281 mg/dL (206-381)
[2019-11-08 10:26] LABS: T4 Total Thyroxine 7.67 ug/dL (5.5-11.0)
[2019-11-08 10:42] LABS: Ferritin 10.1 ng/mL (6.27-137)
[2019-11-12 15:00] LABS: Thyroid Peroxidase Antibodies < 1 IU/mL (< 9)
== END ==
PROVIDERS: PCP Internal Medicine; Visit Provider Internal Medicine
DX: Z00.00 Encounter for general adult medical examination without abnormal findings (principal); E03.9 Hypothyroidism, unspecified; E61.1 Iron deficiency; I47.1 Supraventricular tachycardia
CPT/HCPCS: 36415; 80053; 80061; 82728; 83540; 83550; 84436; 84443; 85025; 86376

== ENCOUNTER → 2020-02-03 15:26 | Outpatient (CLI) | payer OTHER, SELFPAY ==
[2020-02-03 16:55] LABS: HEMOLYSIS < 15 (0-50); Iron 67 ug/dL (37-170)
[2020-02-03 17:05] LABS: Percent Iron Saturation 17 % (15-50); Total Iron Binding Capacity 390 ug/dL (265-497); Transferrin 319 mg/dL (206-381)
[2020-02-03 17:12] LABS: T4 Total Thyroxine 8.89 ug/dL (5.5-11.0)
[2020-02-03 17:26] LABS: Thyroid Stimulating Hormone 3.41 uIU/mL (0.47-4.68)
[2020-02-03 18:53] LABS: Ferritin 8 ng/mL (6-137)
== END ==
PROVIDERS: PCP Internal Medicine; Referring Provider Internal Medicine; Visit Provider Internal Medicine
DX: E61.1 Iron deficiency (principal); E03.9 Hypothyroidism, unspecified
CPT/HCPCS: 36415; 82728; 83540; 83550; 84436; 84443

== ENCOUNTER → 2020-03-03 18:49 | Outpatient (ROUT) | payer OTHER, SELFPAY | PROVIDERS: PCP Internal Medicine; Visit Provider Internal Medicine | DX: R39.9 Unspecified symptoms and signs involving the genitourinary system (principal) | CPT/HCPCS: 87077; 87086; 87147 ==

== ENCOUNTER → 2020-11-14 08:57 | Outpatient (CLI) | payer OTHER, SELFPAY ==
--- NOTE | 2020-11-14 | DI.MG.S_ITS ---
BILATERAL DIGITAL SCREENING MAMMOGRAM 3D/2D WITH CAD: 11/14/2020 CLINICAL: Routine screening. Comparison is made to exams dated: 10/24/2019 mammogram and 09/21/2017 mammogram - [facility]. There are scattered fibroglandular elements in both breasts. Current study was also evaluated with a Computer Aided Detection (CAD) system. No significant masses, calcifications, or other findings are seen in either breast. There has been no significant interval change. IMPRESSION: NEGATIVE There is no mammographic evidence of malignancy. A 1 year screening mammogram is recommended. This exam was interpreted at Station ID: [id number]. NOTE: For mammograms, a report in lay terms will be sent to the patient. Approximately 15% of breast malignancies will not be visualized mammographically. In the management of a palpable breast mass, a negative mammogram must not discourage biopsy of a clinically suspicious lesion. Electronically Signed By: Gurinder harrison/krystyna:11/16/2020 08:31:32 letter sent: Normal Exam ACR BI-RADS Category 1: Negative 3341F
== END ==
PROVIDERS: PCP Internal Medicine; Referring Provider Internal Medicine; Visit Provider Internal Medicine
DX: Z12.31 Encounter for screening mammogram for malignant neoplasm of breast (principal)
CPT/HCPCS: 77063; 77067

== ENCOUNTER → 2020-12-28 10:18 | Outpatient (CLI) | payer OTHER, SELFPAY ==
[2020-12-28 11:50] LABS: BUN Creatinine Ratio 13.9 (6-22); Blood Urea Nitrogen 10 mg/dL (7-17); Calcium 9.3 mg/dL (8.4-10.2); Carbon Dioxide 28 mmol/L (22-32); Chloride 103 mmol/L (98-107); Cholesterol 201 mg/dL (140-199); Estimated Glomerular Filt Rate > 60.0 mL/min (>60); Glucose 96 mg/dL (70-100); HDL Cholesterol 40 mg/dL (40-60); HEMOLYSIS < 15 (0-50); LDL Cholesterol Calculated 118 mg/dL (<100); Potassium 4.3 mmol/L (3.4-5.1); Sodium 137 mmol/L (137-145); Triglycerides 217 mg/dL (35-150)
[2020-12-28 12:03] LABS: Vitamin D 25 Hydroxy (D3) 23.1 ng/mL (30.0-100.0)
[2020-12-28 12:17] LABS: TSH w/ Reflex to FT4 2.84 uIU/mL (0.47-4.68)
[2020-12-28 12:20] LABS: Ferritin 6 ng/mL (6-137)
[2020-12-29 23:52] LABS: Zinc 73 ug/dL (44-115)
== END ==
PROVIDERS: PCP Internal Medicine; Referring Provider Internal Medicine; Visit Provider Internal Medicine
DX: E03.9 Hypothyroidism, unspecified (principal)
CPT/HCPCS: 36415; 80048; 80061; 82306; 82728; 84443; 84630

== ENCOUNTER → 2021-11-10 09:15 | Outpatient (CLI) | payer OTHER, SELFPAY ==
[2021-11-10 10:54] LABS: Pregnancy Test Serum,Qual Negative (Negative)
[2021-11-10 10:57] LABS: Cholesterol 238 mg/dL (140-199); HDL Cholesterol 45 mg/dL (40-60); HEMOLYSIS < 15 (0-50); Iron 130 ug/dL (37-170); LDL Cholesterol Calculated 157 mg/dL (<100); Triglycerides 182 mg/dL (35-150)
[2021-11-10 11:08] LABS: Percent Iron Saturation 42 % (15-50); Total Iron Binding Capacity 306 ug/dL (265-497); Transferrin 241 mg/dL (206-381)
[2021-11-10 11:15] LABS: Prolactin 18.9 ng/mL (3.0-18.6)
[2021-11-10 11:27] LABS: Follicle Stimulating Hormone 23.3 mIU/mL
[2021-11-10 11:29] LABS: TSH w/ Reflex to FT4 2.48 uIU/mL (0.47-4.68)
[2021-11-10 11:33] LABS: Ferritin 53 ng/mL (6-137)
[2021-11-10 13:56] LABS: Hemoglobin A1C% w Est Avg Glu 5.2 % (4.0-6.0)
[2021-11-20 18:52] LABS: 1,25-Dihydroxy, Vitamin D-2 <10 pg/mL (.)
== END ==
PROVIDERS: PCP Internal Medicine; Referring Provider Student in an Organized Health Care Education/Training Program; Visit Provider Student in an Organized Health Care Education/Training Program
DX: E55.9 Vitamin D deficiency, unspecified (principal); E78.5 Hyperlipidemia, unspecified; E16.2 Hypoglycemia, unspecified; E61.1 Iron deficiency; N92.6 Irregular menstruation, unspecified; E03.9 Hypothyroidism, unspecified
CPT/HCPCS: 36415; 80061; 82652; 82728; 83001; 83036; 83540; 83550; 84146; 84443; 84703

== ENCOUNTER 2022-05-10 17:27 | Emergency (ER) | payer OTHER, SELFPAY | END 2022-05-10 18:30 | disposition left against medical advice (07) | PROVIDERS: Emergency Provider Emergency Medicine; PCP Internal Medicine ==

== ENCOUNTER 2022-07-04 20:32 | Emergency (ER) | payer OTHER, SELFPAY ==
[2022-07-04 20:38] VITALS: BP 156/86; PULSE 95; RESP 18; TEMP 36.7; O2SAT 99
--- NOTE | 2022-07-04 21:46 | ED.GENADULT ---
HPI - General Adult General Chief complaint: Environmental Exposure Stated complaint: Mixed cleaning chemical foggy taste is strange Time Seen by Provider: 07/04/22 21:46 Source: patient Mode of arrival: Ambulatory Limitations: no limitations History of Present Illness HPI narrative: The patient was helping her son move. She was cleaning the bathroom, she inadvertently used a combination of Lysol and bleach in the toilet. A fog in the ER developed. She could taste the chemicals. She developed tingling to her tongue. She has no airway tightness, no hoarseness, no difficulty breathing or difficulty swallowing. She has no skin rash. She has no eye pain. She has no chest pain. She denies GI symptoms. She has no history of asthma. She feels well now. Related Data Home Medications Medication Instructions Recorded Confirmed ferrous sulfate 325 mg (65 mg 325 mg PO DAILY PRN 01/27/22 01/27/22 iron) tablet Previous Rx's Medication Instructions Recorded metoprolol succinate 25 mg 25 mg PO DAILY #90 tabs 01/27/22 tablet,extended release 24 hr Allergies Allergy/AdvReac Type Severity Reaction Status Date / Time No Known Drug Allergies Allergy Verified 01/27/22 10:47 Review of Systems Review of Systems ROS Unobtainable: All systems reviewed & are unremarkable except as noted in HPI and below Patient History Medical History Acquired hypothyroidism Generalized anxiety disorder Healthy adult SVT (supraventricular tachycardia) Surgical History No pertinent past surgical history Social History marital status: details: (Lindsay), two grown children Smoking Status: Never smoker alcohol intake: never substance use type: does not use Smoking Status: Never smoker Exam Initial Vital Signs Initial Vital Signs: Vital Signs Temperature 98.0 F 07/04/22 20:38 Pulse Rate 95 H 07/04/22 20:38 Respiratory Rate 18 07/04/22 20:38 Blood Pressure 156/86 H 07/04/22 20:38 Pulse Oximetry 99 07/04/22 20:38 Oxygen Delivery Method 07/04/22 20:38 Const General: cooperative, healthy appearing, comfortable, well developed and well groomed [facility] Head: normocephalic and atraumatic Nose: external nose normal and nares normal Face and sinus: normal facial exam Mouth: oral mucosae normal and oropharynx normal Eyes General: Yes appearance normal, both eyes and all related structures Conjunctivae: conjunctivae normal Resp Effort & Inspection: normal respiratory effort and no audible wheezes Auscultation: clear to auscultation bilaterally Cardio Palpation: normal PMI Rate: regular rate Rhythm: regular rhythm Heart Sounds: S1 normal, S2 normal, no gallops, no murmurs and no rubs Skin General: no rashes or lesions noted Neuro General: patient alert, patient awake, patient oriented x3 and no focal motor deficits Psych Mental Status: mental status grossly normal Course Orders Ordered: ED Orders 07/04/22 21:06 Consult to Respiratory Therapy Evaluate & Treat Vital Signs Vital signs: Vital Signs - 8 hr 07/04/22 20:38 Temperature 98.0 F Pulse Rate 95 H Respiratory Rate 18 Blood Pressure 156/86 H Pulse Oximetry 99 Oxygen Delivery Method Room Air Discharge Plan Departure Patient Disposition: Home Clinical Impression: Exposure to chemical inhalation Instructions: DI for Inhalation Injury Activity Restrictions/Additional Instructions: Your skin, her mouth in your lungs are all normal. Your oxygen is supplies normal. Symptoms should continue to resolve without intervention. Avoid using those compounds together. I would recommend showering when she go home, wash hyour clothes. Return here if you develop symptoms of airway tightness or difficulty breathing. Prescriptions: No Action ferrous sulfate 325 mg (65 mg iron) tablet 325 mg PO DAILY PRN metoprolol succinate 25 mg tablet extended release 24 hr 25 mg PO DAILY Qty: 90 3RF Referrals: Riaz Kingsley MD [Primary Care Provider] -
[2022-07-04 22:03] VITALS: BP 144/80; PULSE 80; RESP 17; O2SAT 97
== END 2022-07-04 22:04 | disposition home or self-care (01) ==
PROVIDERS: Emergency Provider Emergency Medicine; PCP Internal Medicine
DX: Z77.098 Contact with and (suspected) exposure to other hazardous, chiefly nonmedicinal, chemicals (principal)
CPT/HCPCS: 99281

== ENCOUNTER → 2022-10-01 14:20 | Outpatient (CLI) | payer OTHER, SELFPAY ==
--- NOTE | 2022-10-01 14:21 | DI.MG.S_ITS ---
BILATERAL DIGITAL SCREENING MAMMOGRAM 3D/2D WITH CAD: 10/01/2022 CLINICAL: Routine screening. Comparison is made to exams dated: 11/14/2020 mammogram and 10/24/2019 mammogram - [facility]. There are scattered areas of fibroglandular density in both breasts (category b / 25%-50% glandular tissue). Current study was also evaluated with a Computer Aided Detection (CAD) system. No significant masses, calcifications, or other findings are seen in either breast. There has been no significant interval change. IMPRESSION: NEGATIVE There is no mammographic evidence of malignancy. A 1 year screening mammogram is recommended. Based on the Tyrer Cuzick model (a risk assessment model) the patient's lifetime risk is 7.5% and her 10 year risk is 1.7%. According to the ACR, ACS, and NCCN guidelines, an annual breast MRI exam along with mammogram is recommended if the patient's lifetime risk is 20% or greater. This exam was interpreted at Station ID: [id number]. NOTE: For mammograms, a report in lay terms will be sent to the patient. Approximately 15% of breast malignancies will not be visualized mammographically. In the management of a palpable breast mass, a negative mammogram must not discourage biopsy of a clinically suspicious lesion. Electronically Signed By: Luis Daniel hou/[email or web address]:10/03/2022 13:32:58 letter sent: Normal Exam ACR BI-RADS Category 1: Negative 3341F
== END ==
PROVIDERS: PCP Internal Medicine; Referring Provider Internal Medicine; Visit Provider Internal Medicine
DX: Z12.31 Encounter for screening mammogram for malignant neoplasm of breast (principal)
CPT/HCPCS: 77063; 77067

== ENCOUNTER → 2023-04-28 08:20 | Outpatient (CLI) | payer OTHER, SELFPAY ==
[2023-04-28 09:47] LABS: Hematocrit 42.9 % (36-46); Hemoglobin 15.1 g/dL (12.0-16.0); Mean Corpuscular HGB Conc 35.2 % (30-36); Mean Corpuscular Hemoglobin 30.9 PG (26-34); Mean Corpuscular Volume 87.8 fL (80-100); Platelet Count 185 X10^3/uL (150-400); Red Blood Cell Count 4.89 X10^6/uL (4.0-5.2); Red Cell Distribution Width 12.3 % (11.6-14.8); White Blood Cell Count 4.7 X10^3/uL (4.5-11.0)
[2023-04-28 10:15] LABS: HEMOLYSIS < 15 (0-50); Iron 104 ug/dL (37-170)
[2023-04-28 10:19] LABS: Alanine Aminotransferase 29 IU/L (<35); Albumin 4.3 g/dL (3.5-5.0); Albumin Globulin Ratio 1.3 (1.0-2.8); Alkaline Phosphatase 69 U/L (38-126); Aspartate Aminotransferase 26 IU/L (14-36); BUN Creatinine Ratio 13.4 (6-22); Bilirubin Total 0.9 mg/dL (0.2-1.3); Blood Urea Nitrogen 11 mg/dL (7-17); Carbon Dioxide 28 mmol/L (22-32); Chloride 102 mmol/L (98-107); Cholesterol 236 mg/dL (140-199); Estimated Glomerular Filt Rate > 60 mL/min (>60); Globulin 3.2 g/dL (1.7-4.1); Glucose 86 mg/dL (70-100); HDL Cholesterol 48 mg/dL (40-60); HEMOLYSIS < 15 (0-50); LDL Cholesterol Calculated 151 mg/dL (<100); Potassium 3.9 mmol/L (3.4-5.1); Sodium 137 mmol/L (137-145); Total Protein 7.5 g/dL (6.3-8.2); Triglycerides 185 mg/dL (35-150)
[2023-04-28 10:26] LABS: Percent Iron Saturation 34 % (15-50); Total Iron Binding Capacity 305 ug/dL (265-497); Transferrin 205 mg/dL (206-381)
[2023-04-28 10:32] LABS: Follicle Stimulating Hormone 35.7 mIU/mL; Vitamin D 25 Hydroxy (D3) 20.2 ng/mL (30.0-100.0)
[2023-04-28 10:51] LABS: Ferritin 49 ng/mL (6-137)
[2023-04-29 09:30] LABS: x Labcorp Estim. Avg Glu (eAG) 117 mg/dL (.); x Labcorp Hemoglobin A1c 5.7 % (4.8-5.6)
== END ==
PROVIDERS: PCP Internal Medicine; Referring Provider Internal Medicine; Visit Provider Internal Medicine
DX: E03.9 Hypothyroidism, unspecified (principal); E78.2 Mixed hyperlipidemia; I47.1 Supraventricular tachycardia; N95.1 Menopausal and female climacteric states; D64.9 Anemia, unspecified
CPT/HCPCS: 80053; 80061; 82306; 82728; 83001; 83036; 83540; 83550; 84443; 85027

== ENCOUNTER → 2023-05-11 07:54 | Outpatient (CLI) | payer OTHER, SELFPAY ==
--- NOTE | 2023-05-11 07:55 | DI.US.S_ITS ---
PROCEDURE: US ABDOMEN COMPLETE INDICATIONS: abdominal pain TECHNIQUE: Real-time scanning was performed of the abdominal and retroperitoneal organs, with image documentation. COMPARISON: None. FINDINGS: Liver: Liver is normal in size and homogeneous in echotexture. Gallbladder: Unremarkable. Biliary ducts: Intrahepatic bile ducts are non-dilated. Extrahepatic bile duct caliber measures 4 mm. Normal is 6-7 mm or less in diameter, or 10 mm or less post-cholecystectomy. Pancreas: Visualized portions of the pancreas are sonographically normal. Spleen: Spleen is normal in size and homogeneous in echotexture. Kidneys: Kidneys are normal in size and echotexture. Right kidney measures 8.8 cm along (likely an under estimation due to the presence of bowel gas; left kidney measures 11.2 cm long. No hydronephrosis or nephrolithiasis. No solid masses. Aorta: Visualized aorta is normal in caliber at less than 3 cm. Iliacs: Not visualized due to the presence of bowel gas. IVC: Intrahepatic inferior vena cava is patent. Miscellaneous: No free abdominal fluid. IMPRESSION: No findings to explain the patient's abdominal pain. Dictated by: Rafiq Pacheco M.D. on 05/11/2023 at 11:03 Approved by: Rafiq Pacheco M.D. on 05/11/2023 at 11:09
== END ==
PROVIDERS: PCP Internal Medicine; Referring Provider Internal Medicine; Visit Provider Internal Medicine
DX: Z12.11 Encounter for screening for malignant neoplasm of colon (principal); R10.9 Unspecified abdominal pain
CPT/HCPCS: 76700

== ENCOUNTER → 2023-07-05 11:03 | Outpatient (CLI) | payer OTHER, SELFPAY ==
--- NOTE | 2023-07-05 11:05 | DI.RAD.S_ITS ---
PROCEDURE: XR ANKLE LT MIN 3V INDICATIONS: left ankle pain TECHNIQUE: 3 views of the ankle were acquired. COMPARISON: [facility], CR, FOOT 3V LEFT, 08/11/2017, 16:10. FINDINGS: Bones: No acute displaced fracture identified. Ankle mortise is normally aligned. Lucent focus at the medial talar dome measuring up to approximately 8 millimeters. Soft tissues: No tibiotalar joint effusion. IMPRESSION: No acute displaced fracture identified. Small lucent focus at the medial talar dome suspicious for osteochondral defect. Cross-sectional imaging could be obtained as clinically indicated. Dictated by: Gurinder Trammell M.D. on 07/05/2023 at 15:05 Approved by: Gurinder Trammell M.D. on 07/05/2023 at 15:13
[2023-07-05 13:40] LABS: TSH w/ Reflex to FT4 2.07 uIU/mL (0.47-4.68)
[2023-07-05 13:56] LABS: Vitamin B12 231 pg/mL (239-931)
== END ==
PROVIDERS: PCP Internal Medicine; Referring Provider Internal Medicine; Visit Provider Internal Medicine
DX: M25.572 Pain in left ankle and joints of left foot (principal); E53.8 Deficiency of other specified B group vitamins; R79.89 Other specified abnormal findings of blood chemistry
CPT/HCPCS: 36415; 73610; 82607; 84443

== ENCOUNTER → 2023-10-06 14:00 | Outpatient (CLI) | payer OTHER, SELFPAY ==
--- NOTE | 2023-10-06 | DI.MG.S_ITS ---
BILATERAL DIGITAL SCREENING MAMMOGRAM 3D/2D WITH CAD: 10/06/2023 CLINICAL: Routine screening. Comparison is made to exams dated: 10/01/2022 mammogram, 11/14/2020 mammogram, and 10/24/2019 mammogram - [facility]. There are scattered areas of fibroglandular density in both breasts (category b / 25%-50% glandular tissue). Current study was also evaluated with a Computer Aided Detection (CAD) system. No significant masses, calcifications, or other findings are seen in either breast. There has been no significant interval change. IMPRESSION: NEGATIVE There is no mammographic evidence of malignancy. A 1 year screening mammogram is recommended. Based on the Tyrer Cuzick model (a risk assessment model) the patient's lifetime risk is 7.7% and her 10 year risk is 1.8%. According to the ACR, ACS, and NCCN guidelines, an annual breast MRI exam along with mammogram is recommended if the patient's lifetime risk is 20% or greater. This exam was interpreted at Station ID: [id number]. NOTE: For mammograms, a report in lay terms will be sent to the patient. Approximately 15% of breast malignancies will not be visualized mammographically. In the management of a palpable breast mass, a negative mammogram must not discourage biopsy of a clinically suspicious lesion. Electronically Signed By: Steven Mckeon M.D. acr/krystyna:10/06/2023 14:32:18 letter sent: Normal Exam ACR BI-RADS Category 1: Negative 3341F
== END ==
PROVIDERS: PCP Internal Medicine; Referring Provider Internal Medicine; Visit Provider Internal Medicine
DX: Z12.31 Encounter for screening mammogram for malignant neoplasm of breast (principal)
CPT/HCPCS: 77063; 77067

== ENCOUNTER → 2023-11-30 13:02 | Outpatient (CLI) | payer OTHER, SELFPAY ==
--- NOTE | 2023-11-30 13:04 | DI.US.S_ITS ---
PROCEDURE: US PELVIC COMPLETE INDICATIONS: IRREGULAR MENSTRUAL BLEEDING TECHNIQUE: Real-time scanning was performed of the pelvic organs, with image documentation. Additional endovaginal scanning was necessary due to incomplete visualization of the adnexal and endometrial structures by transabdominal scanning. COMPARISON: None. LIMITATIONS: TRANSVAGINAL WAS ATTEMPTED BUT PATIENT COULD NOT TOLERATE And ASKED TO STOP. OVARIES WERE NOT SEEN. FINDINGS: Uterus: Uterus is anteverted and normal in size at 8.8 x 4.7 x 4.6 cm. The myometrium is homogeneous. The endometrium measures 4.7 mm combined thickness. Ovaries: Nonvisualized Other: No pathologic free abdominal or pelvic fluid. IMPRESSION: Limited transabdominal exam. Nonvisualized ovaries. Uterus appears normal. Dictated by: Pancho Felipe M.D. on 11/30/2023 at 16:47 Approved by: Pancho Felipe M.D. on 11/30/2023 at 17:01
== END ==
PROVIDERS: PCP Internal Medicine; Referring Provider Student in an Organized Health Care Education/Training Program; Visit Provider Student in an Organized Health Care Education/Training Program
DX: N92.6 Irregular menstruation, unspecified (principal)
CPT/HCPCS: 76856

== ENCOUNTER → 2024-01-31 10:08 | Outpatient (CLI) | payer OTHER, SELFPAY ==
[2024-01-31 12:00] LABS: HEMOLYSIS < 15 (0-50)
[2024-01-31 12:01] LABS: Aspartate Aminotransferase 28 IU/L (14-36); Blood Urea Nitrogen 12 mg/dL (7-17); Calcium 9.8 mg/dL (8.4-10.2); Carbon Dioxide 27 mmol/L (22-32); Chloride 106 mmol/L (98-107); Cholesterol 241 mg/dL (140-199); Estimated Glomerular Filt Rate > 60 mL/min (>60); Glucose 98 mg/dL (70-100); HDL Cholesterol 49 mg/dL (40-60); LDL Cholesterol Calculated 157 mg/dL (<100); Sodium 141 mmol/L (137-145); Triglycerides 176 mg/dL (35-150)
[2024-01-31 12:14] LABS: Vitamin D 25 Hydroxy (D3) 38.4 ng/mL (30.0-100.0)
[2024-01-31 12:28] LABS: TSH w/ Reflex to FT4 3.03 uIU/mL (0.47-4.68)
[2024-01-31 12:48] LABS: Vitamin B12 883 pg/mL (239-931)
[2024-01-31 14:26] LABS: Potassium 4.5 mmol/L (3.4-5.1)
== END ==
PROVIDERS: PCP Internal Medicine; Referring Provider Internal Medicine; Visit Provider Internal Medicine
DX: E78.2 Mixed hyperlipidemia (principal); E53.8 Deficiency of other specified B group vitamins; E55.9 Vitamin D deficiency, unspecified
CPT/HCPCS: 36415; 80048; 80061; 82306; 82607; 84443; 84450

== ENCOUNTER → 2024-07-31 09:10 | Outpatient (CLI) | payer OTHER, SELFPAY ==
[2024-07-31 10:10] LABS: Hematocrit 43.2 % (36-46); Hemoglobin 15.1 g/dL (12.0-16.0); Mean Corpuscular HGB Conc 35.1 % (30-36); Mean Corpuscular Hemoglobin 30.6 PG (26-34); Mean Corpuscular Volume 87.3 fL (80-100); Platelet Count 191 X10^3/uL (150-400); Red Blood Cell Count 4.95 X10^6/uL (4.0-5.2); Red Cell Distribution Width 12.3 % (11.6-14.8); White Blood Cell Count 5.4 X10^3/uL (4.5-11.0)
[2024-07-31 10:33] LABS: HEMOLYSIS < 15 (0-50); Iron 128 ug/dL (37-170)
[2024-07-31 10:46] LABS: Alanine Aminotransferase 49 IU/L (<35); Albumin 4.7 g/dL (3.5-5.0); Albumin Globulin Ratio 1.6 (1.0-2.8); Alkaline Phosphatase 87 U/L (38-126); Aspartate Aminotransferase 32 IU/L (14-36); BUN Creatinine Ratio 13.6 (6-22); Blood Urea Nitrogen 11 mg/dL (7-17); Carbon Dioxide 26 mmol/L (22-32); Chloride 104 mmol/L (98-107); Cholesterol 260 mg/dL (140-199); Estimated Glomerular Filt Rate > 60 mL/min (>60); Glucose 107 mg/dL (70-100); HDL Cholesterol 47 mg/dL (40-60); HEMOLYSIS < 15 (0-50); LDL Cholesterol Calculated 171 mg/dL (<100); Potassium 4.8 mmol/L (3.4-5.1); Sodium 138 mmol/L (137-145); Total Protein 7.7 g/dL (6.3-8.2); Triglycerides 209 mg/dL (35-150)
[2024-07-31 10:49] LABS: Percent Iron Saturation 45 % (15-50); Total Iron Binding Capacity 282 ug/dL (265-497); Transferrin 230 mg/dL (206-381)
[2024-07-31 10:52] LABS: Vitamin D 25 Hydroxy (D3) 36.7 ng/mL (30.0-100.0)
[2024-07-31 11:06] LABS: TSH w/ Reflex to FT4 1.91 uIU/mL (0.47-4.68)
[2024-07-31 11:26] LABS: Vitamin B12 321 pg/mL (239-931)
== END ==
LOC: LAB 09:14
PROVIDERS: PCP Internal Medicine; Referring Provider Internal Medicine; Visit Provider Internal Medicine
DX: R79.89 Other specified abnormal findings of blood chemistry (principal); E78.2 Mixed hyperlipidemia; E55.9 Vitamin D deficiency, unspecified; E53.8 Deficiency of other specified B group vitamins; I47.10 Supraventricular tachycardia, unspecified
CPT/HCPCS: 36415; 80053; 80061; 82306; 82607; 83540; 83550; 84443; 85027

== ENCOUNTER → 2024-10-14 15:56 | Outpatient (CLI) | payer OTHER, SELFPAY ==
--- NOTE | 2024-10-14 15:57 | DI.MG.S_ITS ---
BILATERAL DIGITAL SCREENING MAMMOGRAM 3D/2D WITH CAD: 10/14/2024 CLINICAL: Routine screening. Comparison is made to exams dated: 10/06/2023 mammogram, 10/01/2022 mammogram, 11/14/2020 mammogram, and 09/21/2017 mammogram - [facility]. There are scattered areas of fibroglandular density (category b / 25%-50% glandular tissue). Current study was also evaluated with a Computer Aided Detection (CAD) system. No significant masses, calcifications, or other findings are seen in either breast. There has been no significant interval change. IMPRESSION: NEGATIVE There is no mammographic evidence of malignancy. A 1 year screening mammogram is recommended. Based on the Tyrer Cuzick model (a risk assessment model) the patient's lifetime risk is 7.8% and her 10 year risk is 1.9%. According to the ACR, ACS, and NCCN guidelines, an annual breast MRI exam along with mammogram is recommended if the patient's lifetime risk is 20% or greater. This exam was interpreted at Station ID: [id number]. NOTE: For mammograms, a report in lay terms will be sent to the patient. Approximately 15% of breast malignancies will not be visualized mammographically. In the management of a palpable breast mass, a negative mammogram must not discourage biopsy of a clinically suspicious lesion. Electronically Signed By: Tonio copeland/krystyna:10/15/2024 07:57:16 letter sent: Normal Exam ACR BI-RADS Category 1: Negative
== END ==
PROVIDERS: PCP Internal Medicine; Referring Provider Internal Medicine; Visit Provider Internal Medicine
DX: Z12.31 Encounter for screening mammogram for malignant neoplasm of breast (principal)
CPT/HCPCS: 77063; 77067

== ENCOUNTER → 2025-08-01 08:52 | Outpatient (CLI) | payer OTHER, SELFPAY ==
[2025-08-01 09:59] LABS: Hematocrit 43.0 % (36-46); Hemoglobin 14.9 g/dL (12.0-16.0); Mean Corpuscular HGB Conc 34.6 % (30-36); Mean Corpuscular Hemoglobin 30.8 PG (26-34); Mean Corpuscular Volume 89.0 fL (80-100); Platelet Count 190 X10^3/uL (150-400)
[2025-08-01 10:14] LABS: Hemoglobin A1C% w Est Avg Glu 5.4 % (4.0-6.0)
[2025-08-01 10:29] LABS: Alanine Aminotransferase 20 IU/L (<35); Albumin 4.4 g/dL (3.5-5.0); Albumin Globulin Ratio 1.5 (1.0-2.8); Alkaline Phosphatase 66 U/L (38-126); Blood Urea Nitrogen 10 mg/dL (7-17); Calcium 9.2 mg/dL (8.4-10.2); Carbon Dioxide 24 mmol/L (22-32); Chloride 104 mmol/L (98-107); Cholesterol 206 mg/dL (140-199); Estimated Glomerular Filt Rate > 60 mL/min (>60); Globulin 3.0 g/dL (1.7-4.1); Glucose 87 mg/dL (70-99); HDL Cholesterol 49 mg/dL (40-60); HEMOLYSIS 56 (0-50); Potassium 4.3 mmol/L (3.4-5.1); Sodium 137 mmol/L (137-145); Total Protein 7.4 g/dL (6.3-8.2); Triglycerides 182 mg/dL (35-150)
[2025-08-01 10:47] LABS: Vitamin D 25 Hydroxy (D3) 27.3 ng/mL (30.0-100.0)
[2025-08-01 11:02] LABS: TSH w/ Reflex to FT4 1.76 uIU/mL (0.47-4.68)
[2025-08-01 11:21] LABS: Vitamin B12 273 pg/mL (239-931)
== END ==
PROVIDERS: PCP Internal Medicine; Referring Provider Internal Medicine; Visit Provider Internal Medicine
DX: E53.8 Deficiency of other specified B group vitamins (principal); E78.2 Mixed hyperlipidemia; E55.9 Vitamin D deficiency, unspecified; R73.01 Impaired fasting glucose; I47.10 Supraventricular tachycardia, unspecified
CPT/HCPCS: 36415; 80053; 80061; 82306; 82607; 83036; 84443; 85027